=== PATIENT | female | born 1955 | race Caucasian/White ===

== ENCOUNTER 2018-01-05 15:56 | Emergency (ER) | payer BC ==
[2018-01-05] MEDS ORDERED: FUROSEMIDE INJ/PF 40 MG/4 ML SDV IV ONE ×2 (16:30)
--- NOTE | 2018-01-05 16:41 | RADIOLOGY REPORT (SQ) ---
EXAM DESCRIPTION: CHEST SINGLE VIEW COMPLETED DATE/TIME: 01/05/2018 4:22 pm REASON FOR STUDY: sob COMPARISON: None. NUMBER OF VIEWS: One view. TECHNIQUE: Single frontal radiographic view of the chest acquired. LIMITATIONS: None. FINDINGS: LUNGS AND PLEURA: No opacities, masses or pneumothorax. No pleural effusion. MEDIASTINUM AND HILAR STRUCTURES: No masses. Contour normal. HEART AND VASCULAR STRUCTURES: Heart enlarged without failure. Normal vasculature. BONES: No acute findings. HARDWARE: None in the chest. OTHER: No other significant finding. IMPRESSION: HEART ENLARGED WITHOUT FAILURE. NO OTHER SIGNIFICANT RADIOGRAPHIC FINDING IN THE CHEST. TECHNICAL DOCUMENTATION: JOB ID: [id number] [employer]- All Rights Reserved Reading location - IP/workstation name: [email or web address]
[2018-01-05 16:42] LABS: VENOUS BLOOD PCO2 48.1 mmHg (35-63); VENOUS BLOOD PH 7.48 (7.30-7.42)
[2018-01-05 16:45] LABS: ABSOLUTE LYMPHOCYTES (AUTO) 0.9 10^3/uL (0.5-4.7); ABSOLUTE MONOCYTES (AUTO) 0.6 10^3/uL (0.1-1.4); ABSOLUTE NEUT (AUTO) 5.2 10^3/uL (1.7-8.2); BASOPHILS % (AUTO) 0.5 % (0-2); EOSINOPHILS % (AUTO) 0.3 % (0-6); HEMATOCRIT 40.5 % (36.0-47.0); HEMOGLOBIN 13.5 g/dL (12.0-15.5); LYMPHOCYTES % (AUTO) 12.9 % (13-45); MEAN CORPUSCULAR HEMOGLOBIN 27.6 pg (27.0-33.4); MEAN CORPUSCULAR HGB CONC 33.2 g/dL (32.0-36.0); MEAN CORPUSCULAR VOLUME 83 fl (80-97); MONOCYTES % (AUTO) 8.5 % (3-13); PLATELET COUNT 182 10^3/uL (150-450); RED BLOOD COUNT 4.88 10^6/uL (3.72-5.28); RED CELL DISTRIBUTION WIDTH 22.2 % (11.5-14.0); SEGMENTED NEUTROPHILS % (AUTO) 77.8 % (42-78); TOTAL CELLS COUNTED % (AUTO) 100 %; WHITE BLOOD COUNT 6.6 10^3/uL (4.0-10.5)
[2018-01-05 16:55] LABS: ALANINE AMINOTRANSFERASE 16 U/L (9-52); ALBUMIN 4.2 g/dL (3.5-5.0); ALKALINE PHOSPHATASE 127 U/L (38-126); ANION GAP 18 (5-19); ASPARTATE AMINO TRANSFERASE 30 U/L (14-36); BILIRUBIN,DIRECT 1.4 mg/dL (0.0-0.4); BILIRUBIN,TOTAL 3.4 mg/dL (0.2-1.3); BLOOD UREA NITROGEN 35 mg/dL (7-20); CALCIUM 9.2 mg/dL (8.4-10.2); CARBON DIOXIDE 32 mmol/L (22-30); CHLORIDE 85 mmol/L (98-107); CREATINE KINASE 72 U/L (30-135); GLUCOSE 74 mg/dL (75-110); SODIUM 135.1 mmol/L (137-145); TOTAL PROTEIN 6.9 g/dL (6.3-8.2)
[2018-01-05 16:56] LABS: POTASSIUM 2.9 mmol/L (3.6-5.0)
[2018-01-05] MEDS ORDERED: ONDANSETRON HCL INJ/PF 4 MG/2 ML SDV IV ONE (16:56)
[2018-01-05 17:05] LABS: CREATINE KINASE MB 0.91 ng/mL (<4.55); TROPONIN I 0.024 ng/mL
[2018-01-05 17:17] LABS: ARTERIAL BLOOD BASE EXCESS 7.7 mmol/L; ARTERIAL BLOOD FIO2 4L; ARTERIAL BLOOD HCO3 30.5 mmol/L (20-24); ARTERIAL BLOOD O2 SATURATION 96.8 % (94-98); ARTERIAL BLOOD PCO2 36.4 mmHg (35-45); ARTERIAL BLOOD PH 7.54 (7.35-7.45); ARTERIAL BLOOD PO2 78.1 mmHg (80-100); ARTERIAL BLOOD TOTAL CO2 31.6 mmol/L (21-25)
--- NOTE | 2018-01-05 18:08 | EKG REPORT ---
SEVERITY:- ABNORMAL ECG - SINUS RHYTHM FIRST DEGREE AV BLOCK INCOMPLETE RIGHT BUNDLE BRANCH BLOCK ANTERIOR INFARCT, AGE INDETERMINATE DIFFUSE NONSPECIFIC ST-T CHANGES. : Confirmed by: Horacio Kirkpatrick MD 05-Jan-2018 18:07:52
[2018-01-05 19:06] LABS: APPEARANCE,URINE CLOUDY; BILIRUBIN,URINE NEGATIVE (NEGATIVE); COLOR,URINE YELLOW; GLUCOSE, URINE NEGATIVE (NEGATIVE); KETONES,URINE NEGATIVE (NEGATIVE); LEUKOCYTE ESTERASE,URINE LARGE (NEGATIVE); NITRITE,URINE NEGATIVE (NEGATIVE); PROTEIN,URINE NEGATIVE (NEGATIVE); URINE SPECIFIC GRAVITY 1.008; UROBILINOGEN,URINE NEGATIVE mg/dL (<2.0)
--- NOTE | 2018-01-05 19:10 | PDOC CONSULTATION ---
Consultation Consult Date: 01/05/18 History of Present Illness Patient complains of: leg swelling, SOB History of Present Illness: SOUMYA CUEVAS is a 62 year old female with a history of chronic right-sided heart failure, pulmonary hypertension, on macitentan, Uptravi and Taladafil, and connective tissue disease who presented with increasing leg swelling. Patient says that she. She was diagnosed with PAH 2 years ago. She says that she also had a sister who had the same condition who last month. She says that she has been having worsening pedal swelling in the past 2 weeks. She does have chronic bipedal edema. She also says that her abdomen is becoming more tight in the past 2-3 weeks. She says she has chronic shortness of breath from her right- sided heart failure and this is only slightly worsened. She denies any chest pain or palpitations. She says that her oxygen saturation at home went down to 70-73% on room air. She has also noticed purplish discoloration of her lips. Social History Smoking Status: Unknown if Ever Smoked Family History Parental Family History Reviewed: Yes - pulm HTN-sister Children Family History Reviewed: No Sibling(s) Family History Reviewed.: No Medication/Allergy Allergies/Adverse Reactions: cephalexin [From Keflex] Allergy (Verified 01/05/18 16:05) clindamycin [From Cleocin] Allergy (Verified 01/05/18 16:05) Penicillins Allergy (Verified 01/05/18 16:03) Review of Systems All systems: reviewed and no additional remarkable complaints except as stated - as mentioned in HPI Physical Exam Vital Signs: Temp Pulse Resp BP Pulse Ox 98.3 F 89 19 131/82 H 100 01/05/18 16:05 01/05/18 16:05 01/05/18 18:01 01/05/18 18:01 01/05/18 18:01 Intake & Output 01/04/18 01/05/18 01/06/18 06:59 06:59 06:59 Weight 189 lb 9.561 oz General appearance: PRESENT: no acute distress, other - note of cyanotic lips Head exam: PRESENT: atraumatic, normocephalic Eye exam: PRESENT: conjunctiva pink, EOMI, PERRLA. ABSENT: scleral icterus Ear exam: PRESENT: normal external ear exam Mouth exam: PRESENT: moist, tongue midline Neck exam: PRESENT: JVD - distended neck veins right>left. ABSENT: carotid bruit, lymphadenopathy, thyromegaly Respiratory exam: PRESENT: clear to auscultation estrada. ABSENT: rales, rhonchi, wheezes Cardiovascular exam: PRESENT: RRR, systolic murmur. ABSENT: diastolic murmur, rubs Pulses: PRESENT: normal dorsalis pedis pul GI/Abdominal exam: PRESENT: distended, normal bowel sounds, soft. ABSENT: guarding, mass, organolmegaly, rebound, tenderness Rectal exam: PRESENT: deferred Extremities exam: PRESENT: +2 edema Neurological exam: PRESENT: alert, awake, oriented to person, oriented to place , oriented to time, oriented to situation, CN II-XII grossly intact. ABSENT: motor sensory deficit Results Laboratory Results: 01/05/18 16:16 01/05/18 16:16 01/05/18 01/05/18 01/05/18 16:16 16:16 16:16 WBC 6.6 RBC 4.88 Hgb 13.5 Hct 40.5 MCV 83 MCH 27.6 MCHC 33.2 RDW 22.2 H Plt Count 182 Seg Neutrophils % 77.8 Lymphocytes % 12.9 L Monocytes % 8.5 Eosinophils % 0.3 Basophils % 0.5 Absolute Neutrophils 5.2 Absolute Lymphocytes 0.9 Absolute Monocytes 0.6 Absolute Eosinophils 0.0 Absolute Basophils 0.0 Carbonic Acid HCO3/H2CO3 Ratio ABG pH ABG pCO2 ABG pO2 ABG HCO3 ABG O2 Saturation ABG Base Excess VBG pH 7.48 H VBG pCO2 48.1 VBG HCO3 35.0 H VBG Base Excess 10.0 FiO2 Sodium 135.1 L Potassium 2.9 L* Chloride 85 L Carbon Dioxide 32 H Anion Gap 18 BUN 35 H Creatinine 1.29 H Est GFR ( Amer) 50 L Est GFR (Non-Af Amer) 42 L Glucose 74 L Calcium 9.2 Magnesium Total Bilirubin 3.4 H AST 30 ALT 16 Alkaline Phosphatase 127 H Total Protein 6.9 Albumin 4.2 Lipase 01/05/18 01/05/18 01/05/18 16:16 16:16 16:42 WBC RBC Hgb Hct MCV MCH MCHC RDW Plt Count Seg Neutrophils % Lymphocytes % Monocytes % Eosinophils % Basophils % Absolute Neutrophils Absolute Lymphocytes Absolute Monocytes Absolute Eosinophils Absolute Basophils Carbonic Acid 1.10 HCO3/H2CO3 Ratio 27:1 ABG pH 7.54 H ABG pCO2 36.4 ABG pO2 78.1 L ABG HCO3 30.5 H ABG O2 Saturation 96.8 ABG Base Excess 7.7 VBG pH VBG pCO2 VBG HCO3 VBG Base Excess FiO2 4L Sodium Potassium Chloride Carbon Dioxide Anion Gap BUN Creatinine Est GFR ( Amer) Est GFR (Non-Af Amer) Glucose Calcium Magnesium 2.5 H Total Bilirubin AST ALT Alkaline Phosphatase Total Protein Albumin Lipase 167.0 01/05/18 01/05/18 16:16 16:16 Creatine Kinase 72 CK-MB (CK-2) 0.91 Troponin I 0.024 Impressions: Chest X-Ray 01/05/18 16:11 IMPRESSION: HEART ENLARGED WITHOUT FAILURE. NO OTHER SIGNIFICANT RADIOGRAPHIC FINDING IN THE CHEST. Assessment & Plan - Diagnosis (1) Acute right-sided heart failure Is this a current diagnosis for this admission?: Yes Plan: Patient appears to be having acute right sided heart failure likely secondary to decompensated pulmonary arterial hypertension. Discussed with cardiology and pulmonology who recommended escalating patient care to tertiary center with pulmonary hypertension specialist service available. Hold off on further diuretics in the setting of acute right sided heart failure. - Time Time Spent: 30 to 50 Minutes
[2018-01-05] MEDS ORDERED: POTASSIUM CHLORIDE 10 MEQ CAPSULE.ER PO ONE (20:11)
[2018-01-05] MEDS ORDERED: CIPROFLOXACIN 400 MG/D5W RTU 400 MG/200 ML RTUPB IV ONE (20:21)
--- NOTE | 2018-01-05 21:46 | ER Document Report ---
ED General - General Chief Complaint: Shortness Of Breath Stated Complaint: BODY SWELLING,SHORT OF BREATH Time Seen by Provider: 01/05/18 16:16 TRAVEL OUTSIDE OF THE [place] IN LAST 30 DAYS: No - HPI Patient complains to provider of: Shortness of breath Notes: Patient coming for evaluation of shortness of breath. Patient has a history of pulmonary arterial hypertension along with right-sided heart failure. Patient is visiting from [place]. Patient states she has been taken off her medication however he ran out of her torsemide today 100 mg. Patient also states she forgot bring her oxygen patient states she normally wears 20 L nasal cannula high flow at nighttime. Patient otherwise denies any pain denies any fevers chills nausea vomiting diarrhea denies any chest pain abdominal pain. Patient does states that her legs are swollen and does feel fluid overload. Patient upon evaluation does have cyanosis around the oral mucosa also cyanosis the hands. Patient is able to talk in complete sentences and does relate that this is happened to her before requiring hospitalization otherwise resolving with some patient states that if she has the fluid removed she would feel much better. - Related Data Allergies/Adverse Reactions: cephalexin [From Keflex] Allergy (Verified 01/05/18 16:05) clindamycin [From Cleocin] Allergy (Verified 01/05/18 16:05) Penicillins Allergy (Verified 01/05/18 16:03) Past Medical History - Social History Smoking Status: Unknown if Ever Smoked Family History: Reviewed & Not Pertinent Patient has suicidal ideation: No Patient has homicidal ideation: No Renal/ Medical History: Denies: Hx Peritoneal Dialysis Review of Systems - Review of Systems Constitutional: No symptoms reported EENT: No symptoms reported Cardiovascular: No symptoms reported Respiratory: Short of breath Gastrointestinal: No symptoms reported Genitourinary: No symptoms reported Female Genitourinary: No symptoms reported Musculoskeletal: No symptoms reported Skin: No symptoms reported Hematologic/Lymphatic: No symptoms reported Neurological/Psychological: No symptoms reported -: Yes All other systems reviewed and negative Physical Exam - Vital signs Vitals: Temp Pulse Resp BP Pulse Ox 98.3 F 89 18 122/80 94 01/05/18 16:05 01/05/18 16:05 01/05/18 16:05 01/05/18 16:05 01/05/18 16:05 Interpretation: Normal - General General appearance: Appears well, Alert - HEENT Head: Normocephalic, Atraumatic Eyes: Normal Pupils: PERRL Notes: Cyanosis around the mouth - Respiratory Respiratory status: No respiratory distress Chest status: Nontender Breath sounds: Normal Chest palpation: Normal - Cardiovascular Rhythm: Regular Heart sounds: Normal auscultation Murmur: No - Abdominal Inspection: Normal Distension: No distension Bowel sounds: Normal Tenderness: Nontender Organomegaly: No organomegaly - Back Back: Normal, Nontender - Extremities General upper extremity: Normal inspection, Nontender, Normal ROM, Normal temperature, Other - Cyanosis of the hands bilaterally. No: Normal color General lower extremity: Normal inspection, Nontender, Edema - 2-3+ edema, Normal color, Normal ROM, Normal temperature - Neurological Neuro grossly intact: Yes Cognition: Normal Orientation: AAOx4 Danielle Coma Scale Eye Opening: Spontaneous Danielle Coma Scale Verbal: Oriented [place] Coma Scale Motor: Obeys Commands [place] Coma Scale Total: 15 Speech: Normal Motor strength normal: LUE, RUE, LLE, RLE Sensory: Normal - Psychological Associated symptoms: Normal affect, Normal mood - Skin Skin Temperature: Warm Skin Moisture: Dry Skin Color: Normal Course - Re-evaluation Re-evalutation: 01/05/18 21:53 Laboratory studies showed hypokalemia however mag was normal replaced orally. Patient was given 60 mg of IV Lasix with diuresis urinalysis does show some signs of infection we will start the patient on ciprofloxacin. Urine culture has been sent. Initially discussed the case with the hospitalist to consult on the patient recommended transfer to tertiary care facility after consultation with our pulmonology and cardiology here at [facility]. Initially discussed with [facility] as the patient has pulmonary arterial hypertension unfortunately they are unable to accept the patient at this time as that they are diverting. Discussed the patient's case with Dr. Li. Discussed the case with Dr. Hager attending [facility] at [facility] who accepted patient in transfer. Patient has been stable during her time here on oxygen. No further hypoxia. Patient will be transferred to [facility] 01/05/18 21:55 - Vital Signs Vital signs: Temp Pulse Resp BP Pulse Ox 98.3 F 89 17 117/96 H 88 L 01/05/18 22:25 01/05/18 16:05 01/05/18 22:20 01/05/18 22:20 01/05/18 22:20 - Laboratory Result Diagrams: 01/05/18 16:16 01/05/18 16:16 Laboratory results interpreted by me: 01/05/18 01/05/18 01/05/18 16:16 16:16 16:16 RDW 22.2 H Lymphocytes % 12.9 L ABG pH ABG pO2 ABG HCO3 ABG Total CO2 VBG pH 7.48 H VBG HCO3 35.0 H Sodium 135.1 L Potassium 2.9 L* Chloride 85 L Carbon Dioxide 32 H BUN 35 H Creatinine 1.29 H Est GFR ( Amer) 50 L Est GFR (Non-Af Amer) 42 L Glucose 74 L Magnesium Total Bilirubin 3.4 H Direct Bilirubin 1.4 H Alkaline Phosphatase 127 H Urine Blood Ur Leukocyte Esterase 01/05/18 01/05/18 01/05/18 16:16 16:42 18:15 RDW Lymphocytes % ABG pH 7.54 H ABG pO2 78.1 L ABG HCO3 30.5 H ABG Total CO2 31.6 H VBG pH VBG HCO3 Sodium Potassium Chloride Carbon Dioxide BUN Creatinine Est GFR ( Amer) Est GFR (Non-Af Amer) Glucose Magnesium 2.5 H Total Bilirubin Direct Bilirubin Alkaline Phosphatase Urine Blood MODERATE H Ur Leukocyte Esterase LARGE H Critical Care Note - Critical Care Note Total time excluding time spent on procedures (mins): 35 Comments: Multiple discussions with tertiary care facilities for transfer patient with cyanosis pulmonary arterial hypertension right-sided heart failure. Discharge - Discharge Clinical Impression: Hypokalemia, Acute right-sided heart failure, Hx of pulmonary hypertension, UTI (urinary tract infection) Condition: Good Disposition: [facility] [place]
[2018-01-05 22:25] VITALS: BP 117/96
== END 2018-01-05 22:29 | disposition short-term general hospital (02) ==
LOC: ER 15:56
DX: I50.811 Acute right heart failure (principal); N39.0 Urinary tract infection, site not specified; E87.6 Hypokalemia; R40.2412 Glasgow coma scale score 13-15, at arrival to emergency department; Z88.0 Allergy status to penicillin; Z88.1 Allergy status to other antibiotic agents
CPT/HCPCS: 93005; 99291; 96375; 96365; 36415; 87086; 82553; 82803 ×2; 82550; 83690; 83735; 85025; 87088; 80053; 81001; 84484; 87186; 71045; 93010; J1940; J2405; J0744

== ENCOUNTER 2018-01-13 13:50 | Emergency (ER) | payer BC ==
[2018-01-13] MEDS ORDERED: NORMAL SALINE 500 ML IV ONE (15:14)
[2018-01-13 15:17] LABS: ABSOLUTE EOSINOPHILS # (AUTO) 0.1 10^3/uL (0.0-0.6); ABSOLUTE LYMPHOCYTES (AUTO) 0.7 10^3/uL (0.5-4.7); ABSOLUTE NEUT (AUTO) 10.1 10^3/uL (1.7-8.2); BASOPHILS % (AUTO) 0.4 % (0-2); EOSINOPHILS % (AUTO) 0.8 % (0-6); HEMATOCRIT 37.7 % (36.0-47.0); HEMOGLOBIN 12.3 g/dL (12.0-15.5); LYMPHOCYTES % (AUTO) 5.7 % (13-45); MEAN CORPUSCULAR HEMOGLOBIN 27.5 pg (27.0-33.4); MEAN CORPUSCULAR HGB CONC 32.7 g/dL (32.0-36.0); MEAN CORPUSCULAR VOLUME 84 fl (80-97); MONOCYTES % (AUTO) 8.7 % (3-13); PLATELET COUNT 170 10^3/uL (150-450); RED BLOOD COUNT 4.49 10^6/uL (3.72-5.28); RED CELL DISTRIBUTION WIDTH 24.2 % (11.5-14.0); SEGMENTED NEUTROPHILS % (AUTO) 84.4 % (42-78); TOTAL CELLS COUNTED % (AUTO) 100 %
--- NOTE | 2018-01-13 15:20 | ER Document Report ---
ED General - General Chief Complaint: General Weakness Stated Complaint: WEAKNESS Time Seen by Provider: 01/13/18 15:06 Mode of Arrival: Ambulatory Information source: Patient Notes: 62-year-old female presents emergency department complaints of generalized weakness. She states that she was admitted to [facility] from January 05 to the for similar. She does not know what she was diagnosed with or what her medical treatment included. Upon review of her chart, she has a history of pulmonary hypertension with Right sided heart failure and UTI. She states that over the last couple of days she has been getting progressively more weak. She states that she has been eating and drinking. She denies any pain. She denies any fever, chills, chest pain, shortness of breath, abdominal pain, dysuria, increased urgency, increased frequency. Patient is on 2L O2 at home. Patient noted to have purplish color lips. Patient says they've been like this for the last 2 weeks. She was told at [facility] it was due to hypoxia from being without her home O2 for 2 months. TRAVEL OUTSIDE OF THE [place] IN LAST 30 DAYS: No - HPI Onset: Other - 8 days Quality of pain: No pain Severity: None Associated symptoms: None Exacerbated by: Denies Relieved by: Denies Similar symptoms previously: Yes Recently seen / treated by doctor: Yes - Related Data Allergies/Adverse Reactions: cephalexin [From Keflex] Allergy (Verified 01/05/18 16:05) clindamycin [From Cleocin] Allergy (Verified 01/05/18 16:05) Penicillins Allergy (Verified 01/05/18 16:03) Past Medical History - Social History Smoking Status: Never Smoker Frequency of alcohol use: None Drug Abuse: None Family History: Reviewed & Not Pertinent Patient has suicidal ideation: No Patient has homicidal ideation: No Renal/ Medical History: Denies: Hx Peritoneal Dialysis Review of Systems - Review of Systems Constitutional: Weakness EENT: No symptoms reported Cardiovascular: No symptoms reported Respiratory: No symptoms reported Gastrointestinal: No symptoms reported Genitourinary: No symptoms reported Female Genitourinary: No symptoms reported Musculoskeletal: No symptoms reported Skin: No symptoms reported Hematologic/Lymphatic: No symptoms reported Neurological/Psychological: No symptoms reported -: Yes All other systems reviewed and negative Physical Exam - Vital signs Vitals: BP 106/63 01/13/18 13:55 - Notes Notes: PHYSICAL EXAMINATION: GENERAL: Well-appearing, well-nourished and in no acute distress. HEAD: Atraumatic, normocephalic. EYES: Pupils equal round and reactive to light, extraocular movements intact, conjunctiva are normal. ENT: Nares patent, oropharynx clear without exudates. Moist mucous membranes. Lips have a purplish hue NECK: Normal range of motion, supple without lymphadenopathy LUNGS: Breath sounds clear to auscultation bilaterally and equal. No wheezes rales or rhonchi. HEART: Regular rate and rhythm without murmurs ABDOMEN: Soft, nontender, nondistended abdomen. No guarding, no rebound. No masses appreciated. Female : deferred Musculoskeletal: Normal range of motion, 1+ pitting edema. NEUROLOGICAL: Cranial nerves grossly intact. Normal speech, normal gait. Normal sensory, motor exams PSYCH: Normal mood, normal affect. SKIN: Warm, Dry, normal turgor, no rashes or lesions noted. Course - Re-evaluation Re-evalutation: 01/13/18 18:33 Records obtained from [facility]. It was noted that the patient was hypoxic and cyanotic on arrival to [facility]. She had not been using her oxygen or torsemide for 2 months. Acute on chronic hypoxic respiratory failure was diagnosed. There were no other causes for the patient's hypoxia. She was given oxygen and diuresed with IV Lasix. Patient gradually improved. She was discharged home on 4 L home oxygen. She was instructed to follow-up with outpatient pulmonology. She was given a prescription for torosemide. In the ED today, Labs and imaging obtained. Patient's white blood cell count is elevated at 12. Her urinalysis shows signs of infection. Patient was given levofloxacin while in the emergency department. Her vital signs are stable. Patient denies any chest pain or shortness of breath. I discussed the results with the patient. I will start her on levofloxacin. Patient feels comfortable with discharge home and following up with her primary care physician outpatient. Patient states that the cyanosis to her lips is chronic. She states that this is not new. Paperwork from [facility] was obtained. Patient' s renal function is similar to 01/09/18. Her creatinine was 1.48 on discharge. Today her creatinine is 1.44. Patient instructed to take the antibiotic as directed, to follow-up with her primary care physician this week, and to return to the emergency department if she begins having worsening symptoms. Patient feels comfortable with the plan of care. 01/13/18 18:35 - Vital Signs Vital signs: Temp Pulse Resp BP Pulse Ox 16 119/71 95 01/13/18 17:01 01/13/18 18:01 01/13/18 18:01 - Laboratory Result Diagrams: 01/13/18 15:06 01/13/18 15:06 Laboratory results interpreted by me: 01/13/18 01/13/18 01/13/18 13:56 15:06 15:06 WBC 12.0 H RDW 24.2 H Seg Neutrophils % 84.4 H Lymphocytes % 5.7 L Absolute Neutrophils 10.1 H ABG pH 7.52 H ABG pO2 57.4 L ABG HCO3 31.4 H ABG Total CO2 32.6 H ABG O2 Saturation 92.5 L Sodium 134.2 L Chloride 88 L BUN 39 H Creatinine 1.44 H Est GFR ( Amer) 44 L Est GFR (Non-Af Amer) 37 L Total Bilirubin 2.5 H Direct Bilirubin 1.1 H NT-Pro-B Natriuret Pep Urine Blood Ur Leukocyte Esterase 01/13/18 01/13/18 15:06 17:18 WBC RDW Seg Neutrophils % Lymphocytes % Absolute Neutrophils ABG pH ABG pO2 ABG HCO3 ABG Total CO2 ABG O2 Saturation Sodium Chloride BUN Creatinine Est GFR ( Amer) Est GFR (Non-Af Amer) Total Bilirubin Direct Bilirubin NT-Pro-B Natriuret Pep 07651 H Urine Blood LARGE H Ur Leukocyte Esterase LARGE H Discharge - Discharge Clinical Impression: Urinary tract infection Qualifiers: Urinary tract infection type: site unspecified Hematuria presence: without hematuria Qualified Code(s): N39.0 - Urinary tract infection, site not specified Condition: Good Disposition: HOME, SELF-CARE Instructions: Urinary Tract Infection ([facility]), Levofloxacin Prescriptions: Levofloxacin [Levaquin 750 mg Tablet] 750 mg PO DAILY #5 tablet Referrals: CHARIS AMADO MD [ACTIVE STAFF] - Follow up as needed
[2018-01-13 15:32] LABS: ANISOCYTOSIS 3+; OVALOCYTES SLIGHT; PLATELET COMMENT ADEQUATE; POIKILOCYTOSIS 1+; TOXIC GRANULATION SLIGHT
[2018-01-13 15:42] LABS: ALANINE AMINOTRANSFERASE 11 U/L (9-52); ALBUMIN 3.7 g/dL (3.5-5.0); ALKALINE PHOSPHATASE 102 U/L (38-126); ANION GAP 17 (5-19); ASPARTATE AMINO TRANSFERASE 35 U/L (14-36); BILIRUBIN,DIRECT 1.1 mg/dL (0.0-0.4); BILIRUBIN,TOTAL 2.5 mg/dL (0.2-1.3); BLOOD UREA NITROGEN 39 mg/dL (7-20); CARBON DIOXIDE 29 mmol/L (22-30); CHLORIDE 88 mmol/L (98-107); CREATINE KINASE 33 U/L (30-135); GLUCOSE 95 mg/dL (75-110); POTASSIUM 3.6 mmol/L (3.6-5.0); SODIUM 134.2 mmol/L (137-145); TOTAL PROTEIN 6.5 g/dL (6.3-8.2)
--- NOTE | 2018-01-13 15:49 | RADIOLOGY REPORT (SQ) ---
EXAM DESCRIPTION: CHEST SINGLE VIEW COMPLETED DATE/TIME: 01/13/2018 3:36 pm REASON FOR STUDY: weakness COMPARISON: 01/05/2018 EXAM PARAMETERS: NUMBER OF VIEWS: One view. TECHNIQUE: Single frontal radiographic view of the chest acquired. RADIATION DOSE: NA LIMITATIONS: None. FINDINGS: LUNGS AND PLEURA: No opacities, masses or pneumothorax. No pleural effusion. MEDIASTINUM AND HILAR STRUCTURES: No masses. Contour normal. HEART AND VASCULAR STRUCTURES: Heart remains enlarged. No failure. BONES: No acute findings. HARDWARE: None in the chest. OTHER: No other significant finding. IMPRESSION: Stable cardiomegaly. No acute findings. TECHNICAL DOCUMENTATION: JOB ID: [id number] [employer]- All Rights Reserved Reading location - IP/workstation name: [email or web address]
[2018-01-13 15:53] LABS: CREATINE KINASE MB 0.84 ng/mL (<4.55)
[2018-01-13 16:01] LABS: TROPONIN I 0.041 ng/mL
[2018-01-13 16:16] LABS: ARTERIAL BLOOD H2CO3 1.18 mmol/L (1.05-1.35); ARTERIAL BLOOD PCO2 39.2 mmHg (35-45); ARTERIAL BLOOD PH 7.52 (7.35-7.45); ARTERIAL BLOOD PO2 57.4 mmHg (80-100)
[2018-01-13 16:17] LABS: ARTERIAL BLOOD FIO2 40%; ARTERIAL BLOOD HCO3 31.4 mmol/L (20-24); ARTERIAL BLOOD O2 SATURATION 92.5 % (94-98); ARTERIAL BLOOD TOTAL CO2 32.6 mmol/L (21-25)
[2018-01-13 17:51] LABS: APPEARANCE,URINE SLIGHTLY-CLOUDY; BILIRUBIN,URINE NEGATIVE (NEGATIVE); COLOR,URINE STRAW; GLUCOSE, URINE NEGATIVE (NEGATIVE); KETONES,URINE NEGATIVE (NEGATIVE); LEUKOCYTE ESTERASE,URINE LARGE (NEGATIVE); NITRITE,URINE NEGATIVE (NEGATIVE); PROTEIN,URINE NEGATIVE (NEGATIVE); URINE SPECIFIC GRAVITY 1.005; UROBILINOGEN,URINE NEGATIVE mg/dL (<2.0)
[2018-01-13] MEDS ORDERED: LEVOFLOXACIN 750 MG TABLET PO ONE (18:31)
[2018-01-13 21:06] VITALS: BP 111/70
--- NOTE | 2018-01-14 08:53 | EKG REPORT ---
SEVERITY:- ABNORMAL ECG - SINUS RHYTHM PROBABLE RVH W/ SECONDARY REPOL ABNORMALITY BORDERLINE PROLONGED QT INTERVAL : Confirmed by: Jareth Ellis 14-Jan-2018 08:52:59
== END 2018-01-13 21:35 | disposition home or self-care (01) ==
LOC: ER 13:50
DX: N39.0 Urinary tract infection, site not specified (principal); R53.1 Weakness; Z88.3 Allergy status to other anti-infective agents; Z88.0 Allergy status to penicillin
CPT/HCPCS: 93005; 99285; 96360; 36415; 82553; 82803; 82550; 85025; 80053; 81001; 84484; 83880; 71045; 93010; J7040

== ENCOUNTER 2018-01-22 03:18 | Emergency (ER) | payer BC ==
[2018-01-22] MEDS ORDERED: FUROSEMIDE INJ/PF 20 MG/2 ML SDV IV ONE ×3 (03:37→22:51)
--- NOTE | 2018-01-22 04:12 | RADIOLOGY REPORT (SQ) ---
EXAM DESCRIPTION: XR CHEST 1 VIEW COMPLETED DATE/TME: 01/22/2018 03:39 CLINICAL HISTORY: 62 years, Female, dyspnea COMPARISON: 01/13/18 NUMBER OF VIEWS: 1 TECHNIQUE: AP view of the chest LIMITATIONS: None. FINDINGS: The lungs are clear. The heart is enlarged. No pneumothorax or pleural effusion. Bones are unchanged. IMPRESSION: Stable cardiomegaly. No acute cardiopulmonary abnormality. 2010 [employer]- All Rights Reserved
[2018-01-22 04:17] LABS: ABSOLUTE EOSINOPHILS # (AUTO) 0.1 10^3/uL (0.0-0.6); ABSOLUTE MONOCYTES (AUTO) 0.8 10^3/uL (0.1-1.4); ABSOLUTE NEUT (AUTO) 10.2 10^3/uL (1.7-8.2); BASOPHILS % (AUTO) 0.3 % (0-2); EOSINOPHILS % (AUTO) 0.6 % (0-6); HEMATOCRIT 39.7 % (36.0-47.0); HEMOGLOBIN 13.1 g/dL (12.0-15.5); MEAN CORPUSCULAR HEMOGLOBIN 27.6 pg (27.0-33.4); MEAN CORPUSCULAR HGB CONC 33.1 g/dL (32.0-36.0); MEAN CORPUSCULAR VOLUME 84 fl (80-97); MONOCYTES % (AUTO) 6.8 % (3-13); PLATELET COUNT 215 10^3/uL (150-450); RED BLOOD COUNT 4.76 10^6/uL (3.72-5.28); RED CELL DISTRIBUTION WIDTH 23.8 % (11.5-14.0); SEGMENTED NEUTROPHILS % (AUTO) 84.3 % (42-78); TOTAL CELLS COUNTED % (AUTO) 100 %; WHITE BLOOD COUNT 12.1 10^3/uL (4.0-10.5)
[2018-01-22 04:33] LABS: ALANINE AMINOTRANSFERASE 17 U/L (9-52); ALBUMIN 3.5 g/dL (3.5-5.0); ALKALINE PHOSPHATASE 135 U/L (38-126); ANION GAP 16 (5-19); ASPARTATE AMINO TRANSFERASE 39 U/L (14-36); BILIRUBIN,DIRECT 1.1 mg/dL (0.0-0.4); BILIRUBIN,TOTAL 2.3 mg/dL (0.2-1.3); BLOOD UREA NITROGEN 31 mg/dL (7-20); CALCIUM 8.8 mg/dL (8.4-10.2); CARBON DIOXIDE 31 mmol/L (22-30); CHLORIDE 85 mmol/L (98-107); GLUCOSE 95 mg/dL (75-110); POTASSIUM 3.5 mmol/L (3.6-5.0); SODIUM 131.6 mmol/L (137-145); TOTAL PROTEIN 6.5 g/dL (6.3-8.2)
[2018-01-22 04:45] LABS: TROPONIN I 0.016 ng/mL
[2018-01-22] MEDS ORDERED: POTASSIUM CHLORIDE 10 MEQ CAPSULE.ER PO ONE (05:08)
--- NOTE | 2018-01-22 05:49 | ER Document Report ---
ED General - General Chief Complaint: General Weakness Stated Complaint: SWELLING Time Seen by Provider: 01/22/18 03:37 Notes: Patient is a pleasant 62-year-old female with a history of primary hypertension who presents with difficulty breathing and increasing swelling. She actually lives up in [place] but has been down here visiting. She came again in December. She was actually seen here and transferred to [facility] for difficulty breathing related to her primary pulmonary hypertension. She currently denies any fevers. No chest pain. No abdominal pain. She says she has swelling throughout that is worsened significantly last couple days. She normally wears 2 L of oxygen at home. Currently she arrives on 5 L of oxygen via nasal cannula and is only 90-91%. She is not the best historian. She is unsure exactly what the cause of her pulmonary hypertension is. She has some history of connective tissue disorder but she does not know what it is other than possible rheumatoid disease. Her sister recently for hypertension as well. This appears this is hereditary in her family. She does not currently smoke. She is unsure if she has a history of any valvular abnormality. TRAVEL OUTSIDE OF THE [place] IN LAST 30 DAYS: No - Related Data Allergies/Adverse Reactions: cephalexin [From Keflex] Allergy (Verified 01/05/18 16:05) clindamycin [From Cleocin] Allergy (Verified 01/05/18 16:05) Penicillins Allergy (Verified 01/05/18 16:03) Past Medical History - Social History Smoking Status: Unknown if Ever Smoked Frequency of alcohol use: None Drug Abuse: None Family History: Reviewed & Not Pertinent Patient has suicidal ideation: No Patient has homicidal ideation: No Renal/ Medical History: Denies: Hx Peritoneal Dialysis Review of Systems - Review of Systems Notes: My Normal Review Basic REVIEW OF SYSTEMS: CONSTITUTIONAL : Denies fever, chills, or sweats. Denies recent illness. EENT: Denies eye, ear, throat, or mouth pain or symptoms. Denies nasal or sinus congestion. CARDIOVASCULAR: Denies chest pain. RESPIRATORY: difficultly breathing. GASTROINTESTINAL: Denies abdominal pain. Denies nausea, vomiting, or diarrhea. MUSCULOSKELETAL: Extremity edema SKIN: Denies rash or skin lesions. NEUROLOGICAL: Denies altered mental status or loss of consciousness. Denies headache. Denies weakness or paralysis or loss of use of either side. Denies problems with gait or speech. Denies sensory or motor loss. ALL OTHER SYSTEMS REVIEWED AND NEGATIVE. Physical Exam - Vital signs Vitals: Resp BP Pulse Ox 22 H 105/57 L 89 L 01/22/18 03:24 01/22/18 03:24 01/22/18 03:24 - Notes Notes: General Appearance: Well nourished, alert, cooperative, moderate acute distress , no obvious discomfort. Vitals: reviewed, See vital signs table. Head: no swelling or tenderness to the head Eyes: PERRL, EOMI, Conjuctiva clear Mouth: No decreasd moisture Lungs: No wheezing, he is alert rales, No rhonci, No accessory muscle use, good air exchange bilaterally. Heart: Normal rate, Regular rythm, No murmur, no rub Abdomen: Normal BS, soft, No rigidity, No abdominal tenderness, No guarding, no rebound, no abdominal masses, no organomegaly Extremities: strength 5/5 in all extremities, good pulses in all extremities, no swelling or tenderness in the extremities, 3+ bilateral extremity edema edema. Skin: Significant skin breakdown in the inguinal region. Neuro: speech clear, oriented x 3, normal affect, responds appropriately to questions. Course - Re-evaluation Re-evalutation: 01/22/18 05:47 I did speak with our hospitalist, Dr. Montelongo, but possible admission here. We did review the notes from the patient was seen here before and cardiology not comfortable keeping her here and did not feel that the resources to be able to really treat her pulmonary hypertension being that she has complicated medical issues. He therefore recommended transfer. I talked to the patient and she does not will be transferred back to [place]. She says that she prefers to be transferred to [place] because they have specialist that would be more familiar with her type of illness and therefore she request to be transferred there. I have called the transfer center and awaiting to hear back. 01/22/18 06:[address] Ennis at [facility] who agrees to accept the patient. She says if the patient does well off BiPAP then we can definitely her as a stepdown unit patient. If the patient continues to require BiPAP then she will go as an ICU patient. I will do a trial of BiPAP and see if she does as she is been very stable and has had some significant diuresis. 01/22/18 07:54 Patient initially did well off BiPAP but then she slowly started to desaturate. She never had any distress but her oxygen saturation got to about 89% and therefore he placed her back on BiPAP. I did contact you to make them aware that the patient is still BiPAP dependent. She otherwise looks well. Dictation of this chart was performed using voice recognition software; therefore, there may be some unintended grammatical errors. - Vital Signs Vital signs: Temp Pulse Resp BP Pulse Ox 97.6 F 15 97/73 L 96 01/22/18 03:53 01/22/18 07:16 01/22/18 07:16 01/22/18 07:16 - Laboratory Result Diagrams: 01/22/18 04:04 01/22/18 04:04 Laboratory results interpreted by me: 01/22/18 01/22/18 01/22/18 04:04 04:04 04:04 WBC 12.1 H RDW 23.8 H Seg Neutrophils % 84.3 H Lymphocytes % 8.0 L Absolute Neutrophils 10.2 H Sodium 131.6 L Potassium 3.5 L Chloride 85 L Carbon Dioxide 31 H BUN 31 H Est GFR ( Amer) 56 L Est GFR (Non-Af Amer) 47 L Total Bilirubin 2.3 H Direct Bilirubin 1.1 H AST 39 H Alkaline Phosphatase 135 H NT-Pro-B Natriuret Pep 01703 H Discharge - Discharge Clinical Impression: Pulmonary hypertension Condition: Stable Disposition: [facility]
--- NOTE | 2018-01-22 19:14 | EKG REPORT ---
SEVERITY:- ABNORMAL ECG - SINUS RHYTHM PROBABLE RVH W/ SECONDARY REPOL ABNORMALITY BORDERLINE PROLONGED QT INTERVAL : Confirmed by: Marguerite Howard MD 22-Jan-2018 19:14:03
[2018-01-22 23:34] LABS: ANION GAP 15 (5-19); BLOOD UREA NITROGEN 32 mg/dL (7-20); CALCIUM 8.6 mg/dL (8.4-10.2); CARBON DIOXIDE 29 mmol/L (22-30); CHLORIDE 86 mmol/L (98-107); GLUCOSE 76 mg/dL (75-110); POTASSIUM 4.1 mmol/L (3.6-5.0); SODIUM 129.5 mmol/L (137-145)
--- NOTE | 2018-01-23 09:52 | ER Document Report ---
Doctor's Note Notes: 01/23/18 09:52 Reevaluated patient prior to transfer. Patient has stating her shortness of breath is improved. She denies any pain. She is satting around 90% on the nasal cannula. She refuses to wear the BiPAP. Patient states at nighttime when she sleeps her oxygen saturation goes into the mid 70s.
[2018-01-23 10:49] VITALS: BP 103/74
== END 2018-01-23 10:56 | disposition short-term general hospital (02) ==
LOC: ER 03:18
DX: I27.20 Pulmonary hypertension, unspecified (principal); R53.1 Weakness; R56.9 Unspecified convulsions; Z99.81 Dependence on supplemental oxygen
CPT/HCPCS: 93005; 96376; 99285; 96374; 36415; 85025; 80048; 80053; 84484; 83880; 71045; 93010; 94660 ×2; J1940